=== PATIENT | female | born 1965 | race Caucasian/White ===

== ENCOUNTER → 2024-06-20 07:36 | Outpatient (REF) | payer OTHER, SELFPAY | LOC: WDC 07:36 | PROVIDERS: ATTENDING PHYSICIAN Physician Assistant Medical | DX: Z12.31 Encounter for screening mammogram for malignant neoplasm of breast (principal) | CPT/HCPCS: 77063; 77067 ==

== ENCOUNTER → 2024-09-02 15:27 | Outpatient (REF) | payer OTHER, SELFPAY ==
[2024-09-02 16:56] LABS: D-Dimer < 0.27 ug/mlFEU (0.00-0.50)
[2024-09-02 16:59] LABS: ALT (SGPT) 16 U/L (0-35); AST (SGOT) 22 U/L (14-36); Albumin 4.2 g/dl (3.5-5.0); Alkaline Phosphatase 94 U/L (38-126); Blood Urea Nitrogen 11 mg/dl (7-17); Calcium 9.8 mg/dl (8.4-10.2); Carbon Dioxide 28 mmol/L (22-30); Chloride 104 mmol/L (98-107); Glucose 85 mg/dl (70-99); Potassium 5.1 mmol/L (3.5-5.1); Sodium 139 mmol/L (135-145); Total Bilirubin 0.4 mg/dl (0.2-1.3); Total Protein 6.7 g/dl (6.3-8.2); eGFR > 60.00
[2024-09-02 17:34] LABS: TSH 0.83 uIU/ml (0.47-4.68)
== END ==
LOC: REG 15:27
PROVIDERS: ATTENDING PHYSICIAN Physician Assistant Medical
DX: R07.89 Other chest pain (principal)
CPT/HCPCS: 36415; 80053; 84443; 85379

== ENCOUNTER → 2024-09-03 08:04 | Outpatient (REF) | payer OTHER, SELFPAY | LOC: RAD 08:04 | PROVIDERS: ATTENDING PHYSICIAN Physician Assistant Medical | DX: R07.89 Other chest pain (principal) | CPT/HCPCS: 71046 ==

== ENCOUNTER → 2024-09-11 08:35 | Outpatient (REF) | payer OTHER, SELFPAY | LOC: HWRAD 08:35 | PROVIDERS: ATTENDING PHYSICIAN Physician Assistant Medical | DX: R07.89 Other chest pain (principal) | CPT/HCPCS: 71250 ==

== ENCOUNTER 2025-01-01 06:40 | Day surgery (SDC) | payer OTHER, SELFPAY | END 2025-01-01 12:12 | disposition home or self-care (01) | LOC: GI 06:40 | PROVIDERS: ATTENDING PHYSICIAN Internal Medicine; FAMILY PHYSICIAN Family Medicine | DX: Z12.11 Encounter for screening for malignant neoplasm of colon (principal); D12.0 Benign neoplasm of cecum; K57.30 Diverticulosis of large intestine without perforation or abscess without bleeding; Z86.0101 Personal history of adenomatous and serrated colon polyps | CPT/HCPCS: 45385; 88305 ==

== ENCOUNTER → 2025-03-02 07:56 | Outpatient (REF) | payer OTHER, SELFPAY | LOC: HWRAD 07:56 | PROVIDERS: ATTENDING PHYSICIAN Internal Medicine Critical Care Medicine; FAMILY PHYSICIAN Physician Assistant Medical | DX: R93.89 Abnormal findings on diagnostic imaging of other specified body structures (principal); J21.9 Acute bronchiolitis, unspecified | CPT/HCPCS: 71250 ==